=== PATIENT | male | born 1980 | race Caucasian/White ===

== ENCOUNTER 2017-11-07 09:51 | Emergency (ER) | payer OTHER ==
[2017-11-07] MEDS: IV NORMAL SALINE 1000ML BAG 1,000 ML IV (11:08)
[2017-11-07] MEDS: PROCHLORPERAZINE 10 MG/2 ML VIAL. IV (11:14)
[2017-11-07] MEDS: diphenhydrAMINE 50 MG/ML VIAL IVP (11:17)
[2017-11-07] MEDS: KETOROLAC 30 MG/ML INJ. IV (11:19)
== END 2017-11-07 12:30 | disposition home or self-care (01) ==
LOC: ER 09:51
DX: R51 Headache (principal); R11.0 Nausea; H57.8 Other specified disorders of eye and adnexa; R09.89 Other specified symptoms and signs involving the circulatory and respiratory systems; G43.909 Migraine, unspecified, not intractable, without status migrainosus
CPT/HCPCS: 96361; 96374; 96375; 99284-25; J0780; J1200; J1885; J7030

== ENCOUNTER 2020-04-07 11:39 | Emergency (ER) | payer OTHER ==
[~2020-04-07] VITALS: Ht 190.5 cm; Wt 106.3 kg
[2020-04-07] MEDS ORDERED: fentaNYL PF VIAL 100 MCG/2 ML VIAL IVP ONE (12:00)
[2020-04-07] MEDS ORDERED: IV NORMAL SALINE 1000ML BAG 1,000 ML IV ONE (12:00)
[2020-04-07 12:03] VITALS: BP 150/87
--- NOTE | 2020-04-07 12:08 | PHYS DOC ---
Past Medical History Past Medical History: Other Additional Past Medical Histor: MIGRAINES Past Surgical History: No Surgical History Smoking Status: Never Smoker Alcohol Use: Occasionally Drug Use: None General Adult EDM: Chief Complaint: GROIN PAIN HPI: HPI: Patient is a 39 year old male who presents with Lifts heavy boxes at work and magdy began to feel a tearing pain in his left lower abdomen when walking, laying back [place] or sitting up from laying, when laying on left side. He states that it is getting worse and not better. Rate pain at a 4 when sitting straight up and not moving but a 10 when laying on left side, walking or moving in general. Denies nausea, vomiting,, dizziness, headache, diarrhea, fever, dysuria, groin pain, penile discharge, testicular pain or swelling. Review of Systems: Review of Systems: GI: Denies LLQ abdominal pain, Denies nausea, vomiting, bloody stools or diarrhea. [] Heart Score: Risk Factors: Risk Factors: DM, Current or recent (<one month) smoker, HTN, HLP, family history of CAD, obesity. Risk Scores: Score 0 - 3: 2.5% MACE over next 6 weeks - Discharge Home Score 4 - 6: 20.3% MACE over next 6 weeks - Admit for Clinical Observation Score 7 - 10: 72.7% MACE over next 6 weeks - Early Invasive Strategies Allergies: Allergies: Allergies Coded Allergies Type Severity Reaction Last Updated Verified No Known Drug Allergies 11/07/17 No Physical Exam: PE: Constitutional: Well developed, well nourished, no acute distress, non-toxic appearance. [] HENT: Normocephalic, atraumatic, bilateral external ears normal, oropharynx moist, no oral exudates, nose normal. [] Eyes: PERRLA, EOMI, conjunctiva normal, no discharge. [] Neck: Normal range of motion, no tenderness, supple, no stridor. [] Cardiovascular:Heart rate regular rhythm, no murmur [] Lungs & Thorax: Bilateral breath sounds clear to auscultation [] Abdomen: Bowel sounds normal, soft, LLQ tenderness, no masses, no pulsatile masses. [] Skin: Warm, dry, no erythema, no rash. [] Back: No tenderness, no CVA tenderness. [] Extremities: No tenderness, no cyanosis, no clubbing, ROM intact, no edema. [] Neurologic: Alert and oriented X 3, normal motor function, normal sensory function, no focal deficits noted. [] Psychologic: Affect normal, judgement normal, mood normal. [] EKG: EKG: [] Radiology/Procedures: Radiology/Procedures: [] Impression: [facility] [address] [place] [address] IMAGING REPORT Signed PATIENT: JESSY BASILIO ACCOUNT: [id number] : 1980 LOCATION: ER AGE: 39 SEX: M EXAM STATUS: REG ER ORD. PHYSICIAN: DAVID LAIRD APRN REASON: left lower abd, tearing pain PROCEDURE: CT ABD PELV W/ IV CONTRST ONLY INDICATION: Abdomen pain COMPARISON: None. TECHNIQUE: Axial CT images obtained through the abdomen and pelvis with contrast. One or more of the following individualized dose reduction techniques were utilized for this examination: 1. Automated exposure control; 2. Adjustment of the mA and/or kV according to patient size; 3. Use of iterative reconstruction technique. FINDINGS: Linear opacities at lung bases. 5 mm nodule right lung base. Mild calcific atherosclerosis. Fat-containing right inguinal hernia. No intrahepatic bile duct dilation. No peripancreatic fluid collection. Spleen unremarkable. No left-sided hydronephrosis. Urinary bladder is partially distended. No right-sided hydronephrosis. Fat-containing umbilical hernia. No periappendiceal inflammatory changes. No dilated loops of bowel to suggest obstruction. Degenerative changes of the spine. This includes osteophyte formation as well as multiple disc protrusions. Multiple Schmorl's nodes. IMPRESSION: * No evidence of bowel obstruction, hydronephrosis or appendicitis. * Linear opacities at lung bases most likely from atelectasis. * 5 mm nodule right lung base. Fleischner Society recommendations for solitary solid lung nodule follow up.: In a low risk patient: <6mm - No follow up required. 6-8mm - 6-[address], then CT at 18-24 months. >8mm - CT at 3 months, PET/CT or tissue sampling. In a high risk patient (history of smoking or other known risk factors): <6mm - Follow up CT at 12 months. 6-8mm - 6-[address], then CT at 18-24 months. >8mm - CT at 3 months, PET/CT or tissue sampling. Fleischner Society recommendations for multiple solid lung nodule follow up.: In a low risk patient: <6mm - No follow up required. 6-8mm - 3-[address], then CT at 18-24 months. >8mm - CT at 3-6 months, then at 18-24 months. PET/CT or tissue sampling based on most suspicious nodule. In a high risk patient (history of smoking or other known risk factors): <6mm - Follow up CT at 12 months. 6-8mm - 3-[address], then CT at 18-24 months. >8mm - CT at 3-6 months, PET/CT or tissue sampling option based on most suspicious nodule. Electronically signed by: Rain Tucker MD (04/07/2020 2:05 PM) [id number] DICTATED and SIGNED BY: RAIN TUCKER MD DATE: 04/07/20 1405 Course & Med Decision Making: Course & Med Decision Making Pertinent Labs and Imaging studies reviewed. (See chart for details) Abdomen is soft slightly tender at the left lower quadrant. No bulges or masses are felt when patient is either sitting or laying. No bruising to the abdomen or to the groin area or leg. Vital signs within normal limits. Exam: Scrotum: Normal Hernia: None Testes/Epid: Nontender w/ normal lie Cremaster: Reflex Intact Lymph: No Inguinal lymphadenopathy Discharge: None [] Dragon Disclaimer: Dragshy Disclaimer: This electronic medical record was generated, in whole or in part, using a voice recognition dictation system. Departure Departure Impression: Primary Impression: Abdominal pain Qualified Codes: R10.32 - Left lower quadrant pain Disposition: 01 HOME, SELF-CARE Condition: STABLE Referrals: NO PCP (PCP) JESSI CASTANEDA MD Patient Instructions: Hernia, Incidental Abnormal Radiological Finding Additional Instructions: Follow up with primary care provider or surgeon for hernia if you continue having pain. Lift using your legs. Take medication as prescribed. Get follow up CT in 6 to 12 months for incidental chest finding. . Scripts Hydrocodone/Apap 5-325 (NORCO 5-325 TABLET) 1 Each Tablet 1 TAB PO PRN Q6HRS PRN for PAIN, #10 TAB 0 Refills Prov: DAVID LAIRD APRN 04/07/20 DAVID LAIRD APRN April 07, 2020 12:08
[2020-04-07 12:14] LABS: BILIRUBIN,URINE SMALL (NEG); CLARITY,URINE CLEAR; COLOR,URINE AMBER; NITRITE,URINE NEGATIVE (NEG); PROTEIN,URINE NEGATIVE (NEG-TRACE)
[2020-04-07 12:20] LABS: BARBITURATES NEG (NEG); BENZODIAZEPINES NEG (NEG); CANNABINOIDS NEG (NEG); COCAINE NEG (NEG); METHADONE NEG (NEG); OPIATES NEG (NEG); PHENCYCLIDINE NEG (NEG)
[2020-04-07 12:37] LABS: BASO # 0.1 x10^3/uL (0.0-0.2); BASO % 1 % (0-3); EOS # 0.5 x10^3/uL (0.0-0.7); EOS % 4 % (0-3); HEMATOCRIT 47.9 % (39.0-53.0); HEMOGLOBIN 16.1 g/dL (13.0-17.5); LYMPH # 1.5 x10^3/uL (1.0-4.8); LYMPH % 13 % (24-48); MEAN CORPUSCULAR HEMOGLOBIN 30 pg (25-35); MEAN CORPUSCULAR HGB CONC 34 g/dL (31-37); MEAN CORPUSCULAR VOLUME 90 fL (79-100); MONO # 1.2 x10^3/uL (0.0-1.1); MONO % 9 % (0-9); NEUT % 74 % (31-73); PLATELET COUNT 352 x10^3/uL (140-400); RED BLOOD COUNT 5.32 x10^6/uL (4.30-5.70); RED CELL DISTRIBUTION WIDTH 13.5 % (11.5-14.5); WHITE BLOOD COUNT 12.2 x10^3/uL (4.0-11.0)
[2020-04-07 12:38] LABS: AMPHETAMINE/METHAMPHETAMINE NEG (NEG)
[2020-04-07 12:50] LABS: BACTERIA,URINE FEW /HPF (0-FEW); RBC,URINE 0 /HPF (0-2); SQUAMOUS EPITHELIAL CELL,UR FEW /LPF; WBC,URINE 0 /HPF (0-4)
[2020-04-07] MEDS ORDERED: IOHEXOL 300 MG/ML 100ML VIAL. IV ONE (13:15)
[2020-04-07 13:25] LABS: CALCIUM 8.5 mg/dL (8.5-10.1); CREATININE 1.1 mg/dL (0.7-1.3); GFR 74.5; POTASSIUM 4.5 mmol/L (3.5-5.1)
[2020-04-07 13:27] LABS: ALBUMIN 3.3 g/dL (3.4-5.0); ALBUMIN/GLOBULIN RATIO 0.9 (1.0-1.7); TOTAL BILIRUBIN 0.2 mg/dL (0.2-1.0); TOTAL PROTEIN 6.8 g/dL (6.4-8.2)
--- NOTE | 2020-04-07 14:08 | RAD ---
INDICATION: Abdomen pain COMPARISON: None. TECHNIQUE: Axial CT images obtained through the abdomen and pelvis with contrast. One or more of the following individualized dose reduction techniques were utilized for this examination: 1. Automated exposure control; 2. Adjustment of the mA and/or kV according to patient size; 3. Use of iterative reconstruction technique. FINDINGS: Linear opacities at lung bases. 5 mm nodule right lung base. Mild calcific atherosclerosis. Fat-containing right inguinal hernia. No intrahepatic bile duct dilation. No peripancreatic fluid collection. Spleen unremarkable. No left-sided hydronephrosis. Urinary bladder is partially distended. No right-sided hydronephrosis. Fat-containing umbilical hernia. No periappendiceal inflammatory changes. No dilated loops of bowel to suggest obstruction. Degenerative changes of the spine. This includes osteophyte formation as well as multiple disc protrusions. Multiple Schmorl's nodes. IMPRESSION: * No evidence of bowel obstruction, hydronephrosis or appendicitis. * Linear opacities at lung bases most likely from atelectasis. * 5 mm nodule right lung base. Fleischner Society recommendations for solitary solid lung nodule follow up.: In a low risk patient: <6mm - No follow up required. 6-8mm - 6-[address], then CT at 18-24 months. >8mm - CT at 3 months, PET/CT or tissue sampling. In a high risk patient (history of smoking or other known risk factors): <6mm - Follow up CT at 12 months. 6-8mm - 6-[address], then CT at 18-24 months. >8mm - CT at 3 months, PET/CT or tissue sampling. Fleischner Society recommendations for multiple solid lung nodule follow up.: In a low risk patient: <6mm - No follow up required. 6-8mm - 3-[address], then CT at 18-24 months. >8mm - CT at 3-6 months, then at 18-24 months. PET/CT or tissue sampling based on most suspicious nodule. In a high risk patient (history of smoking or other known risk factors): <6mm - Follow up CT at 12 months. 6-8mm - 3-[address], then CT at 18-24 months. >8mm - CT at 3-6 months, PET/CT or tissue sampling option based on most suspicious nodule. Electronically signed by: Gregorio Kent MD (04/07/2020 2:05 PM) [id number]
[2020-04-07] MEDS ORDERED: HYDR-3164 PO (14:15)
== END 2020-04-07 14:28 | disposition home or self-care (01) ==
LOC: ER 11:39
DX: R10.32 Left lower quadrant pain (principal); G43.909 Migraine, unspecified, not intractable, without status migrainosus
CPT/HCPCS: 36415; 74177; 80053; 80307; 81001; 85025; 99285; J7030